=== PATIENT | male | born 1985 | race Hispanic/Latino ===

== ENCOUNTER 2024-08-18 05:50 | Emergency (ER) | payer SELFPAY ==
[2024-08-18 05:56] VITALS: BP 156/85; PULSE 110; RESP 20; TEMP 98
== END 2024-08-18 06:03 | disposition left against medical advice (07) ==
LOC: EDH 05:50
DX: F12.90 Cannabis use, unspecified, uncomplicated (principal); Z53.21 Procedure and treatment not carried out due to patient leaving prior to being seen by health care provider